=== PATIENT | female | born 1990 ===

== ENCOUNTER 2025-01-15 07:55 | Inpatient (IN) ==
[2025-01-15] MEDS ORDERED: OXYTOCIN 10 UNIT/ML VIAL IM PRN (08:36)
[2025-01-15] MEDS ORDERED: fentaNYL 100 MCG/2 ML VIAL IVP PRN (08:36)
[2025-01-15] MEDS ORDERED: TERBUTALINE 1 MG/ML VIAL SUBQ PRN (08:36)
[2025-01-15] MEDS ORDERED: OXYTOCIN/SODIUM CHLORIDE 500 ML IV PRN (08:36)
[2025-01-15] MEDS ORDERED: LABETALOL 20 MG/4 ML SYRINGE IVP PRN ×3 (08:36)
[2025-01-15] MEDS ORDERED: hydrALAZINE INJ 20 MG/ML VIAL IVP PRN ×2 (08:36)
[2025-01-15] MEDS ORDERED: CARBOPROST TROMETHAMINE 250 MCG/ML VIAL IM PRN (08:36)
[2025-01-15] MEDS ORDERED: SODIUM CHLORIDE FLUSH 0.9% 10 ML SYRINGE IVP PRN (08:36)
[2025-01-15] MEDS ORDERED: ONDANSETRON ODT 4 MG TABLET PO PRN (08:41)
[2025-01-15] MEDS ORDERED: IBUPROFEN 600 MG TABLET PO PRN (08:41)
[2025-01-15] MEDS ORDERED: CALCIUM CARBONATE CHEW 500 MG TABLET PO PRN (08:41)
[2025-01-15] MEDS ORDERED: NALBUPHINE 10 MG/ML AMP IVP PRN ×2 (08:41→21:43)
--- NOTE | 2025-01-15 08:56 | HISTORY & PHYSICAL EXAMINATION ---
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 course notable for obesity (current BMI 48), GBS carrier (bacteriuria during ), and carrier of alpha thal and achromotopsia (spouse screen neg). Induction was scheduled for post-term. She also has suspected macrosomia based on growth scan 12/19. Current EFW approx 4000 gm. Pelvis proven to about 4000 gm with last delivery 13 yrs ago (spontaneous labor at 40 wks; pushed for 10 min but took a while to dilate; denies hx shoulder dystocia or PPH). She reports no complications with her last or delivery. She is feeling well today but a bit anxious about the induction since she's never been induced before. She reports good movements and denies vaginal bleeding, leakage of fluid, LEWIS, visual changes, or abdominal pain. Specific Issues/Plans LMP:04/03/24 FLORECITA by LMP:01/08/25 US:06/20/24, 10.6wks, c/w dates Final FLORECITA:01/08/25 Problems: CHTN: Denies official diagnosis. Comment on diagnosis found in previous records, but no history of medication or elevated blood pressures seen. As her blood pressures have been normal throughout , I would lean more towards gestational hypertension if elevated blood pressures present. BMI >40 -NSTs starting next visit -EFW 12/19: to 3259 g, 75th percentile. AC 89th percentile. 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 GBS bacteriuria: Treat during labor Baby elle Haji. Pre- Weight: BMI:47.07 Blood type:O+ Antibody Screen:neg CBC: H 12.2 H 39.7 PLT RUB:imm VZV: imm HBsAg:NR HepC:neg RPR:NR HIV:neg Flu: Covid: PAP:doesn't remember when but normal GC/CT:neg HSV: denies self/partner Genetic testing:neg per pt Early Glucola: FAS:08/16/24 Placenta:posterior Cord:3VC NICK:WNL EFW:309g, 84% 50gm OGCT:146 3HR GTT:129, 128, 105 TDAP:11/29 Breast Pump: 11/29 RSV: Antibody screen: CBC:H 11.3 H 37.6 PLT 333 RPR:NR GBS:urine pos Third trimester US 12/19: EFW 3259 gm c/w 75th percentile; NICK 14.5 cm Delivery plan: PP BC: Meds/Allgy Home Medications Ambulatory Orders Medication Instructions Recorded Confirmed vits no.126-ferrous fum tab PO 11/28/2401/11 28 mg iron-folic acid 800 mcg tablet (Classic ) famotidine 20 mg tablet (Pepcid) 20 mg PO BID heartbur n in 12/12/24 01/11/25 #60 tabs witch paco [Preparation H (Witch topical 12/12/2401/26 Paco)] lidocaine HCl 2 % mucosal jelly 1 applic topical TID P RN 12/26/24 01/11/25 hemorrhoid pain #30 mL Allergies Allergies Allergy/AdvReac Type Severity Reaction Status Date / Time No Known Drug Allergies Allergy Verified 01/11/25 11:06 PFSH Active Problems All Active Problems (Updated 01/15/25 @ 10:19 by Lakshmi Escobar MD) 40 weeks gestation of (Acute) GBS bacteriuria (Acute) Obesity affecting (Acute) Obesity (Acute) Family History Family History Maternal grandfather Alcoholism Cancer Maternal grandmother Diabetes Social History Social History Smoking Status: Never smoker Second hand tobacco smoke exposure: No Do you dip or chew tobacco?: No Do you vape?: No Living arrangement: At home Marital Status: Living Condition: With spouse/s.o. and With family Support Person: Yes Level: Independent ETOH Use: None Substance Use: denies use Do you want to become in the next year?: Yes Are you sexually active?: Yes POLST Patient has POLST: No POLST on file?: No POLST CPR Status: Attempt Resuscitation (CPR) Level of Medical Intervention: Full Treatment Review of Systems Status of ROS: 10 or more systems reviewed and unremarkable except as noted in history and below Physical Abdominal Exam Vital Signs: See chart; BP normal General: Well-appearing, no acute distress Lungs: Normal respiratory effort Heart: Reg rate/rhythm Abd: Gravid, nontender Ext: Warm and well-perfused; trace edema Contraction Frequency (min/apart): Q 4-6 min Contraction Intensity: positive Mild to moderate Uterine Resting Tone: positive Soft Monitoring Heart Rate Baseline: 135 Strip Review: positive Category I Presentation Presentation: positive Vertex (verified by bedside US; LOT with spine at maternal left) Vaginal Exam Membranes: positive Membranes intact Dilation (in cm): 1 Effacement (%): 25 Station: positive -3 Cervical Position: positive Posterior Speculum Exam Speculum Exam Performed: positive No Plan for Labor Plan For Labor I expect patient to be DC'd or transferred within 96 hours.: Yes Conclusion/Plan Problem List (1) 40 weeks gestation of : Plan: Term here for scheduled induction of labor. FHT cat 1 with occ contractions. No evidence of rupture of membranes, and VS wnl. Cvx minimally dilated. position confirmed cephalic with bedside US. Suspect larger infant, but pelvis proven to similar size baby without complications. - Admit for induction of labor - Reviewed induction plan/mgmt, including vaginal/oral miso for cervical ripening, ripening balloon prn, Pitocin prn, and amniotomy prn. Discussed risks and benefits of interventions and potential duration of induction. - Reviewed potential interventions during labor and delivery, including vaginal , internal monitors, forceps, vacuum, episiotomy, and . Risks discussed include (but not limited to) bleeding (with possible need for additional procedures and/or blood transfusion), infection, and injuries ( or maternal). Consent form reviewed and signed. - Misoprostol 25 mcg placed vaginally at 0955. Plan for subsequent doses 50 mcg PO Q 4 hrs until 6 total miso doses or ernie painfully 3 or more times in 10 min. - Continuous EFM during medication interventions. - GBS pos: Start Ampicillin when 4-5 cm or ROM occurs. - PPH risk: Low - Shoulder dystocia risk: Moderate due to suspected macrosomia. Will have staff at bedside in preparation for shoulder dystocia. - VTE prophy: Ambulation in early labor; SCD's if prolonged in bed and post- epidrural; prophylactic anticoagulation if delivery performed. (2) GBS bacteriuria: (3) Obesity affecting : Qualifiers: Trimester: third trimester Obesity type affecting : other obesity Qualified Code(s): O99.213 - Obesity complicating , third trimester; E66.89 - Other obesity not elsewhere classified Lab Results Lab results reviewed: Yes 01/15/25 08:34 01/15/25 08:34
[2025-01-15 09:00] LABS: HCT - HEMATOCRIT 39.4 % (37.0-47.0); HGB - HEMOGLOBIN 11.9 g/dL (12.0-16.0); MEAN PLATELET VOLUME 11.2 fL (7.9-10.8); NRBC ABSOLUTE COUNT (AUTO) 0.00 x10^3/uL; NUCLEATED RED BLOOD CELLS AUTO 0.0 /100WBC; PLT - PLATELET COUNT 305 10^3/uL (130-450); RED CELL DISTRIBUTION WIDTH 17.5 % (12.0-15.0)
[2025-01-15] MEDS ORDERED: FAMOTIDINE 20 MG/2 ML VIAL IVP SCH (09:00)
[2025-01-15] MEDS ORDERED: SODIUM CHLORIDE FLUSH 0.9% 10 ML SYRINGE IVP SCH (09:00)
[2025-01-15 09:09] LABS: ALT ALANINE AMINOTRANSFERASE 28.0 IU/L (10-60); AST ASPARTATE AMINOTRANSFERASE 23.0 IU/L (10-42); BUN - BLOOD UREA NITROGEN 13.0 mg/dL (6-20); CARBON DIOXIDE - CO2 20.0 mmol/L (21-32); CREATININE 0.6 mg/dL (0.6-1.3); GFR - MDRD 115.0 (>89)
[2025-01-15] MEDS ORDERED: METHYLERGONOVINE 0.2 MG/ML VIAL IM PRN (10:00)
[2025-01-15 17:12] LABS: TOTAL PROTEIN,URINE TIMED 33.0 mg/dL
--- NOTE | 2025-01-15 17:30 | ANESTHESIA PROCEDURE NOTE ---
Pre-Anesthesia VS, & Labs Diagnosis Surgical Diagnosis:: labor pain Procedure Procedure: epidural Vitals Vital Signs: Temp Pulse Resp BP 37.0 C 87 18 119/78 01/15/25 08:38 01/15/25 08:38 01/15/25 08:38 01/15/25 08:38 Is Patient ?: Yes Lab Results Current Lab Results: Laboratory Tests 01/15/25 09:03: Blood Type Recheck O POSITIVE 01/15/25 08:34: WBC 7.9, RBC 5.23, Hgb 11.9 L, Hct 39.4, MCV 75.3 L, MCH 22.8 L, MCHC 30.2 L, RDW 17.5 H, Plt Count 305, MPV 11.2 H, Neut # (Auto) 4.5, Lymph # (Auto) 2.8, [place] # (Auto) 0.4, Eos # (Auto) 0.1, Baso # (Auto) 0.0, Absolute Nucleated RBC 0.00, Nucleated RBC % 0.0, Sodium 135, Potassium 3.8, Chloride 106, Carbon Dioxide 20 L, Anion Gap 9.0, BUN 13, Creatinine 0.6, Estimated GFR (MDRD) 115, Glucose 111 H, Calcium 9.2, Total Bilirubin 0.4, AST 23, ALT 28, A lkaline Phosphatase 207 H, Total Protein 6.8, Albumin 3.5, Globulin 3.3, Albumin/Globulin Ratio 1.1, Blood Type O POSITIVE, Antibody Screen NEGATIVE 01/15/25 08:34 01/15/25 08:34 Meds/Allgy Home Medications Ambulatory Orders Medication Instructions Recorded Confirmed vits no.126-ferrous fum 1 tab PO DAILY 01/15/25 28 mg iron-folic acid 800 mcg tablet (Classic ) famotidine 20 mg tablet (Pepcid) 20 mg PO BID heartbur n in 12/12/24 01/15/25 #60 tabs witch paco 1 pad topical PRN 12/12/24 1 lidocaine HCl 2 % mucosal jelly 1 applic topical TID P RN 12/26/24 01/15/25 hemorrhoid pain #30 mL Allergies Allergies Allergy/AdvReac Type Severity Reaction Status Date / Time No Known Drug Allergies Allergy Verified 01/11/25 11:06 PFSH Active Problems All Active Problems (Updated 01/15/25 @ 17:28 by Marci Bartholomew CRNA) GBS bacteriuria (Acute) 40 weeks gestation of (Acute) Obesity affecting (Acute) Medical History Medical History (Updated 01/15/25 @ 17:28 by Marci Bartholomew CRNA) Obesity Family History Family History Maternal grandfather Alcoholism Cancer Maternal grandmother Diabetes Social History Social History Smoking Status: Never smoker Second hand tobacco smoke exposure: No Do you dip or chew tobacco?: No Do you vape?: No Living arrangement: At home Marital Status: Living Condition: With spouse/s.o. and With family Support Person: Yes Level: Independent ETOH Use: None Substance Use: denies use Do you want to become in the next year?: Yes Are you sexually active?: Yes POLST Patient has POLST: No POLST on file?: No POLST CPR Status: Attempt Resuscitation (CPR) Level of Medical Intervention: Full Treatment Anesthesia Exam (Expanded) Exam General: Alert, Oriented x3 and Cooperative Dental: WNL Mouth Openin Fingerbreadth Neck Mobility: Normal Mallampati classification: III Thyromental Distance: less than 4 cm Plan Problem List (1) 40 weeks gestation of : Plan: Term here for scheduled induction of labor. FHT cat 1 with occ contractions. No evidence of rupture of membranes, and VS wnl. Cvx minimally dilated. position confirmed cephalic with bedside US. Suspect larger , but pelvis proven to similar size baby without complications. - Admit for induction of labor - Reviewed induction plan/mgmt, including vaginal/oral miso for cervical ripening, ripening balloon prn, Pitocin prn, and amniotomy prn. Discussed risks and benefits of interventions and potential duration of induction. - Reviewed potential interventions during labor and delivery, including vaginal , internal monitors, forceps, vacuum, episiotomy, and . Risks discussed include (but not limited to) bleeding (with possible need for additional procedures and/or blood transfusion), infection, and injuries ( or maternal). Consent form reviewed and signed. - Misoprostol 25 mcg placed vaginally at 0955. Plan for subsequent doses 50 mcg PO Q 4 hrs until 6 total miso doses or ernie painfully 3 or more times in 10 min. - Continuous EFM during medication interventions. - GBS pos: Start Ampicillin when 4-5 cm or ROM occurs. - PPH risk: Low - Shoulder dystocia risk: Moderate due to suspected macrosomia. Will have staff at bedside in preparation for shoulder dystocia. - VTE prophy: Ambulation in early labor; SCD's if prolonged in bed and post- epidrural; prophylactic anticoagulation if delivery performed. (2) GBS bacteriuria: (3) Obesity affecting : Qualifiers: Trimester: third trimester Obesity type affecting : other obesity Qualified Code(s): O99.213 - Obesity complicating , third trimester; E66.89 - Other obesity not elsewhere classified (4) Obesity: Plan Anesthesia Type: Epidural Consent for Procedure(s) Verified and Reviewed: Yes Code Status: Attempt Resuscitation ASA Classification ASA classification: 3-Severe systemic disease Is this case an emergency?: No
[2025-01-15] MEDS ORDERED: MORPHINE 10 MG/ML VIAL IM PRN (20:27)
[2025-01-15] MEDS ORDERED: PROCHLORPERAZINE 10 MG/2 ML VIAL IM PRN (20:27)
[2025-01-15] MEDS: LACTATED RINGERS 1,000 ML IV PRN (20:36)
[2025-01-15] MEDS ORDERED: ROPIVACAINE 0.2% 200 MG/100 ML BAG EP ONE (20:52)
[2025-01-15] MEDS ORDERED: LIDOCAINE 2%-EPI 1:100000 20 ML MDV ONE (20:52)
[2025-01-15] MEDS: AMPICILLIN 1 GM in SODIUM CHLORIDE 0.9% MINIBAG 100 ML IV SCH (20:59)
[2025-01-15] MEDS: AMPICILLIN 2 GM in SODIUM CHLORIDE 0.9% MINIBAG 100 ML IV ONE ×2 (21:13→21:49)
[2025-01-15] MEDS ORDERED: NALOXONE 0.4 MG/ML VIAL IVP PRN (21:43)
[2025-01-15] MEDS ORDERED: LACTATED RINGERS 500 ML IV ONE (21:43)
[2025-01-15] MEDS ORDERED: METOCLOPRAMIDE 10 MG/2 ML VIAL IVP PRN (21:43)
[2025-01-15] MEDS ORDERED: ePHEDrine 50 MG/ML VIAL IVP PRN (21:43)
[2025-01-15] MEDS: LACTATED RINGERS 1,000 ML IV SCH (22:30)
[2025-01-16] MEDS: OXYTOCIN/SODIUM CHLORIDE 500 ML IV SCH (01:07)
[2025-01-16] MEDS: ROPIVACAINE 0.2% 200 MG/100 ML BAG EP PRN (03:29)
[2025-01-16 06:09] LABS: RPR Non Reactive (Non Reactive)
--- NOTE | 2025-01-16 06:10 | PROVIDER PROGRESS NOTE ---
Labor Progress Note Uterine Monitoring Uterine Monitoring Mode: positive External toco Contraction Frequency (min/apart): Q 3-4 min, coupling Contraction Intensity: positive Moderate to strong Uterine Resting Tone: positive Soft Monitoring Monitor Mode: positive External ultrasound Heart Rate Baseline: 130 Heart Rate Variability: positive Moderate (6-25 bmp) Accelerations: positive Present, 15x15 Decelerations: positive None Strip Review: positive Category I Vaginal Exam Dilation (in cm): 9 Effacement (%): 100 Station: 1 (BBOW) Labor Progress Note Labor Progress Note/Additional Text: Patient now 9 cm with BBOW and feeling increased pelvic pressure. Events since admission: patient received one vaginal misoprostol dose and one oral dose. However, subsequent doses were held due to regular, painful contractions. She received an epidural for pain relief and Pitocin was started for augmentation (2 cm dilated at that time). She was found to be 3 cm dilated around midnight, and she subsequently progressed to 7 cm at around 0330. Pitocin has been up to 4 mU/min but was decreased back to 2 mU/min due to contraction frequency. FHT has been cat 1 throughout the night. A/P IOL for post-term, maternal obesity, and possible macrosomic infant. Labor progressed well after cervical ripening, and pt nearing second stage of labor. - Coupling on toco suggests possible OT or OP position. Rotate to maternal right to promote internal rotation to OA. - Plan for amniotomy then start pushing soon. - Anticipate , and will have staff ready for possible shoulder dystocia.
[2025-01-16] MEDS: TRANEXAMIC ACID IN NACL 1,000 MG/100 ML BAG IV PRN (06:49)
[2025-01-16] MEDS ORDERED: LABETALOL 20 MG/4 ML SYRINGE IVP PRN ×2 (06:58)
[2025-01-16] MEDS ORDERED: ACETAMINOPHEN 500 MG TABLET PO PRN (06:58)
[2025-01-16] MEDS ORDERED: NALOXONE 0.4 MG/ML VIAL IVP PRN (06:58)
[2025-01-16] MEDS ORDERED: hydrALAZINE INJ 20 MG/ML VIAL IVP PRN ×2 (06:58)
[2025-01-16] MEDS ORDERED: METHYLERGONOVINE 0.2 MG/ML VIAL IM PRN (06:58)
[2025-01-16] MEDS ORDERED: OXYTOCIN/SODIUM CHLORIDE 500 ML IV PRN (06:58)
[2025-01-16] MEDS ORDERED: TRANEXAMIC ACID IN NACL 1,000 MG/100 ML BAG IV PRN (06:58)
[2025-01-16] MEDS ORDERED: MEASLES,MUMPS & RUBELLA VACC 0.5 ML VIAL SUBQ ONE (06:58)
[2025-01-16] MEDS ORDERED: CARBOPROST TROMETHAMINE 250 MCG/ML VIAL IM PRN (06:58)
[2025-01-16] MEDS ORDERED: LABETALOL 5 MG/1 ML 20 ML MDV IVP PRN (06:58)
[2025-01-16] MEDS: ACETAMINOPHEN 500 MG TABLET PO PRN (08:56)
[2025-01-16] MEDS: ONDANSETRON 4 MG/2 ML VIAL IVP PRN (09:22)
--- NOTE | 2025-01-16 10:27 | DELIVERY NOTE ---
Delivery Note Labor Labor: positive Other (Induced by misoprostol, then augmented with oxytocin) Delivery Method Infant Delivery Method: positive Spontaneous vaginal delivery Cervical Ripening Method Cervical Ripening Method: positive Misoprostil Presentation Presentation: positive ZAHRA - left occiput anterior Nuchal Cord Nuchal Cord: positive None Amniotic Fluid Description Amniotic Fluid Description: positive Clear Episiotomy Type Episiotomy Type: positive None Laceration Laceration: positive 2nd degree Suture Suture Type: positive Vicryl Suture Size: positive 3-0 Delivery Outcome Delivery Date: 01/16/25 Delivery Time: 06:21 Delivery Outcome: positive Livebirth [place] : positive Placed in direct skin contact with mother, Stimulated and Warmed sex: positive Female Cord Cord: positive 3 vessels Placenta Placenta: positive Intact and Spontaneous (with trailing membranes) Estimated Blood Loss Estimated Blood Loss (in cc): 597 Post Delivery Events Post Delivery Events: positive No post delivery events Delivery Comments (Free Text/Narrative) Delivery Comments (Free Text/Narrative): Patient progressed to 9 cm, then ROM occurred at 0604 followed by strong urge to push. She was noted to be c/c/+2 at 0611 and started pushing with excellent efforts. Over 2 contractions/sets of pushes, she delivered the head to the perineum. No nuchal cord was noted. Shoulders delivered easily followed by corpus. occurred at 0621. The baby was dried and stimulated at the perineum then placed on the maternal abdomen. After one-minute delay, the cord was clamped and cut. APGARS were 8 at 1 min and 9 at 5 min. Cord blood was obtained, then the placenta delivered spontaneously and intact. Placenta delivery occurred at 0626. Trailing membranes were noted but appeared to deliver intact. Sweep of the lower uterus noted no residual tissue or membranes, and upper uterus contracted well. A midline 2' laceration was repaired with 3-0 vicryl in the usual fashion. Due to residual bleeding at the hymenal ring, 2 additional figure of eight sutures were placed. She was also given TXA due to oozing at the laceration site. Hemostasis was achieved. Mom and baby doing very well. Anticipate routine care.
[2025-01-16] MEDS: IBUPROFEN 600 MG TABLET PO PRN (12:35)
--- NOTE | 2025-01-16 13:10 | PHARMACY PROGRESS NOTE ---
Best Possible Medication History Admit Date and Time: 01/15/25 0836 Home Medications Medication Instructions Recorded Confirmed Type vits no.126-ferrous fum 1 tab PO DAILY 01/15/25 History 28 mg iron-folic acid 800 mcg tablet (Classic ) famotidine 20 mg tablet (Pepcid) 20 mg PO BID heartbur n in 12/12/24 01/15/25 Rx #60 tabs witch paco 1 pad topical PRN 12/12/24 1 History lidocaine HCl 2 % mucosal jelly 1 applic topical TID P RN 12/26/24 01/15/25 Rx hemorrhoid pain #30 mL Processed by: Pharmacy Medications reviewed in ED?: Yes Medication History completed: Yes Patient Interview: Completed Secondary Source(s): Insurance records [facility] Statement: As the person ultimately responsible for medication therapy, providers are able to order a medication from an existing home medication list in [facility] via the "Reconcile Routine" prior to Confirmation of that medication by postal support employee. Such practice is discouraged except when the physician, in their clinical judgment, deems that a medical need exists for a medication without regard to previous use.
[2025-01-17] MEDS: DOCUSATE SODIUM 100 MG CAPSULE PO SCH (01:00)
[2025-01-17 05:52] VITALS: TEMP 97.7
[2025-01-17 07:27] LABS: ALT ALANINE AMINOTRANSFERASE 23.0 IU/L (10-60); AST ASPARTATE AMINOTRANSFERASE 18.0 IU/L (10-42); BUN - BLOOD UREA NITROGEN 10.0 mg/dL (6-20); CARBON DIOXIDE - CO2 22.0 mmol/L (21-32); CREATININE 0.5 mg/dL (0.6-1.3); GFR - MDRD 142.0 (>89)
[2025-01-17 07:37] LABS: HCT - HEMATOCRIT 33.7 % (37.0-47.0); HGB - HEMOGLOBIN 10.5 g/dL (12.0-16.0); MEAN PLATELET VOLUME 10.9 fL (7.9-10.8); PLT - PLATELET COUNT 256.0 10^3/uL (130-450); RED CELL DISTRIBUTION WIDTH 17.3 % (12.0-15.0)
[2025-01-17] MEDS: MEASLES,MUMPS & RUBELLA VACC 0.5 ML VIAL SUBQ ONE (09:47)
--- NOTE | 2025-01-17 10:35 | Discharge Summary ---
Discharge Summary Admit Date: 01/15/25 Discharge Date: 01/17/25 Discharging Provider: Valencia Uribe MD Code Status: Attempt Resuscitation DIAGNOSES Admission Diagnoses: 40+ weeks. FLORECITA 01/10, bmi 48. here for induction Discharge Diagnoses with Status of Each Condition: vaginal delivery without complications HPI History of Present Illness: 34 yo ->2 admitted for labor induction. transferred care to us during . No complications except BMI of 48. HOSPITAL COURSE Hospital Course: s/p miso, pitocin. progressed to complete and had an uncomplicated vaginal delivery. PP care is unremarkable. Baby weighed 3607 gram, 20.25 inches. Apgars 8/9. ALLERGIES Allergies Allergy/AdvReac Type Severity Reaction Status Date / Time No Known Drug Allergies Allergy Verified 01/11/25 11:06 MEDICATIONS Ambulatory Orders Medication Instructions Recorded Confirmed vits no.126-ferrous fum 1 tab PO DAILY 01/15/25 28 mg iron-folic acid 800 mcg tablet (Classic ) famotidine 20 mg tablet (Pepcid) 20 mg PO BID heartbur n in 12/12/24 01/15/25 #60 tabs witch paco 1 pad topical PRN 12/12/24 1 lidocaine HCl 2 % mucosal jelly 1 applic topical TID P RN 12/26/24 01/15/25 hemorrhoid pain #30 mL PHYSICAL EXAM AT DISCHARGE Vital Signs: Vital Signs x48h Temp Pulse Resp BP Pulse Ox 01/17/25 07:59 36.5 C 78 18 130/76 100 01/17/25 05:50 36.5 C 76 16 122/85 General Appearance: positive No acute distress Respiratory: positive No respiratory distress Cardiovascular: positive Regular rate & rhythm Abdomen: positive Non-tender Skin: positive Color nml Extremities: positive Non-tender and Pedal edema Neurologic/Psychiatric: positive Oriented x3 and Mood/affect nml LABS 01/17/25 07:02 01/17/25 07:02 FOLLOW UP Follow Up: in clinic in 1-2 weeks TIME SPENT Time Spent in Discharge (Minutes): 20 Discharge Plan Discharge Patient Disposition: RUPESH, Self Care Condition: Good Prescriptions: Continued Classic 28 mg iron- 800 mcg tablet 1 tab PO DAILY lidocaine HCl 2 % jelly 1 applic topical TID PRN (Reason: hemorrhoid pain) Qty: 30 3RF witch paco [Preparation H (Witch Paco)] 1 pad topical PRN famotidine [Pepcid] 20 mg tablet 20 mg PO BID Qty: 60 1RF Activity Restrictions/Additional Instructions: pelvic rest for 6 weeks Diet: Regular Print Language: Hong Konger Patient Instructions: After a Vaginal Report called to and time (if no answer, doc. time of each call attempted): seen Vitals documented within 30 minutes of discharge?: Yes
[2025-01-17 11:58] VITALS: BP 128/81; O2SAT 98
--- NOTE | 2025-01-17 12:16 | Labor Flowsheet ---
Labor Flowsheet Datetime Report Generated by CPN: 01/17/2025 12:16 Datetime: 01/17/2025 11:41 VITAL SIGNS NBP Sys/Qiana/Mean (mmHg): 128 : 81 : 90 Pulse: 77 LaborFlag: Labor Datetime: 01/17/2025 07:55 SpO2 (%): 99 Datetime: 01/16/2025 07:21 Membranes Ruptured Date/Time: 01/16/2025 06:04 Cervical Ripening Agents Other: Pitocin Datetime: 01/16/2025 06:43 Temperature (C): 36.8 Datetime: 01/16/2025 06:21 UTERINE ACTIVITY Monitor Mode: Palpation Monitor Interventions for UA: [place] Adjusted Quality: Strong Pattern: Normal: <= 5 Contractions in 10 Minutes Resting Tone (Palpate): Relaxed Monitor Interventions for FHR: Ultrasound Adjusted FHR Baseline Rate : 150 Variability: Moderate 6-25 bpm Pushing Progress: Descent with Pushing Datetime: 01/16/2025 06:18 STAGE 2 Pushing: Urge to Push Pushing Position: Pushing with Contractions Datetime: 01/16/2025 06:15 Frequency (min): 2-4 Duration (sec): 60-80 ASSESSMENT A Monitor Mode: External US Decelerations: Variable Category: Category II Membrane Status: Ruptured Datetime: 01/16/2025 06:11 Exam by: Dr. Shawn Vaginal Exam Comments: complete Datetime: 01/16/2025 06:05 Membrane Comments: bloody show Datetime: 01/16/2025 06:04 Membranes Rupture Method: Spontaneous Amniotic Fluid Color: Clear Amniotic Fluid Amount: Large Datetime: 01/16/2025 06:00 Accelerations: 15X15 Oxygen Method: Room Air COMMUNICATION Communication: RN at Bedside; RN Reviewed Strip; Provider at Bedside Datetime: 01/16/2025 05:30 Notification Reason: Status Update; Labor Status Communication Comments: MD en route to bedside Datetime: 01/16/2025 05:18 VAGINAL EXAM Dilatation (cm): 9.0 Effacement (%): 90 Station: 0 Vaginal Bleeding: Normal Show Datetime: 01/16/2025 04:43 PAIN Pain Scale: 2 Pain Presence: Intermittent Pain Type: Pressure Datetime: 01/16/2025 03:27 Cervix, Consistency: Soft Cervix, Position: Midposition Datetime: 01/16/2025 03:15 Patient Position/Activity: High Fowlers Datetime: 01/16/2025 03:10 MEDICATIONS Pitocin (milliunits): Decreased to @ 2 Datetime: 01/16/2025 03:00 Actions for Decelerations: Side to Side Datetime: 01/16/2025 02:30 Pitocin Checklist: At Least 1 Acceleration of 15 bpm x 15 Seconds in 30 Minutes or Adequate Variability; No More than 1 Late Deceleration Occurred in Past 30 Minutes; No More than 2 Variable Decelerations > 60 Seconds in Duration and decreasing >60 bpm in 30 minutes; No More than 5 Uterine Contractions in 10 Minutes for any 20 Minute Interval; Uterus Palpates Soft between Contractions Datetime: 01/16/2025 01:15 Medication Comments: pitocin @0107 Datetime: 01/16/2025 01:00 MATERNAL ASSESSMENT Level of Consciousness: Alert Headache: Denies Nausea/Vomiting: Denies RUQ Epigastric Pain: Denies Maternal Comments: intermittent tachycardia Antibiotics: Ampicillin IV 1 Gm Datetime: 01/16/2025 00:30 Breath Sounds, Left: Clear and Equal Breath Sounds, Right: Clear and Equal Datetime: 01/15/2025 23:30 Pain Coping: Sleeping Datetime: 01/15/2025 22:00 Pain Assessment Comments: improved after epidural Datetime: 01/15/2025 21:29 ANESTHESIA Epidural Procedure: Completed Datetime: 01/15/2025 21:26 Epidural Procedure Other: Pump Started Datetime: 01/15/2025 21:15 Contraction Comments: palpating contractions during epidural Datetime: 01/15/2025 21:00 Comfort Measures: Breathing/Relaxation; Coaching; Family Support Consults: Anesthesia Datetime: 01/15/2025 20:44 PATIENT CARE IV/Blood Work: IV Bolus Given ml @ 250 Patient Care Comments: bolus for epidural Datetime: 01/15/2025 20:34 Provider Notified (Name): Bartholomew GRINDING WHEEL INSPECTOR Datetime: 01/15/2025 19:30 TEACHING Instructional Method: Verbal Plan of Care: Plan of Care Discussed Unit Routine: [place] to Room Medications: Antibiotics Datetime: 01/15/2025 15:57 Stage of : Consent for anestesia signed by patient Datetime: 01/15/2025 15:00 Comments: ultrasound reajusted multiple times . FHR hard to trace Datetime: 01/15/2025 09:55 Cervical Ripening Agents: Cytotec @ Datetime: 01/15/2025 08:24 Respirations: 18 DTR's/Clonus: No Clonus
== END 2025-01-17 12:00 | disposition home or self-care (01) | DRG 806 ==
LOC: WFO 07:55 → FBP 07:59
PROVIDERS: ADMIT Obstetrics & Gynecology; ATTEND Obstetrics & Gynecology